=== PATIENT | female | born 2000 | race Hispanic/Latino ===

== ENCOUNTER 2018-01-13 08:49 | Emergency (ER) | payer SELFPAY ==
[~2018-01-13 08:49] MED LIST: DOCU-116 PO; MO8B PO
== END 2018-01-13 09:23 | disposition home or self-care (01) ==
LOC: EDH 08:49
DX: J02.9 Acute pharyngitis, unspecified (principal); Z72.0 Tobacco use

== ENCOUNTER 2018-05-07 08:32 | Emergency (ER) | payer MEDICAID, OTHER ==
[2018-05-07] MEDS ORDERED: ONDANSETRON 4 MG TABLET ONE (08:46)
[2018-05-07] MEDS ORDERED: SODIUM CHLORIDE 0.9% 1000ML 1,000 ML IV ONE (09:03)
[2018-05-07] MEDS ORDERED: ONDANSETRON HCL 4 MG/2 ML VIAL ONE (09:03)
[2018-05-07 09:21] LABS: APPEARANCE,URINE Clear (CLEAR); BILIRUBIN,URINE Negative (NEGATIVE); COLOR,URINE Yellow (YELLOW); GLUCOSE, URINE (UA) Negative (NEGATIVE); KETONES,URINE >=160 mg/dL (NEGATIVE); LEUKOCYTE ESTERASE ,URINE Negative (NEGATIVE); NITRATE,URINE Negative (NEGATIVE); OCCULT BLOOD,URINE Moderate (NEGATIVE); PROTEIN,URINE Trace (NEGATIVE); UROBILINOGEN,URINE 0.2 mg/dL (0.2-1.0)
[2018-05-07 09:22] LABS: HCG,QUAL RESULT NEGATIVE (NEGATIVE)
[2018-05-07 09:27] LABS: AMPHET/METH SCREEN,URINE NEGATIVE (NEGATIVE); BARBITURATE SCREEN, URINE NEGATIVE (NEGATIVE); BENZODIAZEPINES SCREEN,URINE NEGATIVE (NEGATIVE); CANNABINOID SCREEN,URINE POSITIVE (NEGATIVE); COCAINE SCREEN,URINE NEGATIVE (NEGATIVE); OPIATE SCREEN,URINE NEGATIVE (NEGATIVE); PHENCYCLIDINE SCREEN,URINE NEGATIVE (NEGATIVE)
[2018-05-07 09:49] LABS: AMORPHOUS SEDIMENT,UR Few /LPF (None Seen); BACTERIA,URINE Rare /HPF (None Seen); MUCUS,URINE Moderate LPF (None Seen); WBC,URINE None Seen /HPF (0-1)
== END 2018-05-07 11:12 | disposition home or self-care (01) ==
LOC: EDH 08:32
DX: F10.10 Alcohol abuse, uncomplicated (principal); R11.2 Nausea with vomiting, unspecified; F12.10 Cannabis abuse, uncomplicated; Z72.0 Tobacco use; Y90.9 Presence of alcohol in blood, level not specified
CPT/HCPCS: 80305; 81001; 81025; 96361; 96374; 99285; J2405; J7030; Q0162

== ENCOUNTER 2020-12-25 10:19 | Emergency (ER) | payer MEDICAID, OTHER ==
[~2020-12-25] VITALS: Ht 162.6 cm; Wt 47.6 kg
[~2020-12-25 10:19] MED LIST changes: +IBUP-1493 PO; -MO8B PO
[2020-12-25 10:51] LABS: APPEARANCE,URINE Cloudy (CLEAR); BILIRUBIN,URINE Negative (NEGATIVE); COLOR,URINE Dark Yellow (YELLOW); GLUCOSE, URINE (UA) Negative (NEGATIVE); HCG,QUAL RESULT POSITIVE (NEGATIVE); KETONES,URINE Trace mg/dL (NEGATIVE); LEUKOCYTE ESTERASE ,URINE Moderate (NEGATIVE); NITRATE,URINE Negative (NEGATIVE); OCCULT BLOOD,URINE Negative (NEGATIVE); PROTEIN,URINE Trace mg/dL (NEGATIVE)
[2020-12-25 11:00] VITALS: BP 110/71
[2020-12-25 11:03] LABS: BASOPHILS % (AUTO) 0.5 % (0.0-5.0); EOSINOPHILS % (AUTO) 2.6 % (0.0-8.0); HEMATOCRIT 38.4 % (36-48); LYMPHOCYTES % (AUTO) 18.3 % (21.0-51.0); MEAN CORPUSCULAR HEMOGLOBIN 29.5 pg (27.0-33.0); MEAN CORPUSCULAR HGB CONC 33.1 g/dL (32.0-36.0); MEAN CORPUSCULAR VOLUME 89.1 fL (79-99); MONOCYTES % (AUTO) 8.4 % (3.0-13.0); NEUTROPHILS % (AUTO) 69.8 % (40.0-77.0); PLATELET COUNT (AUTO) 182 K/uL (130-400); RED BLOOD CELL COUNT(AUTO) 4.31 MIL/uL (4.00-5.50); RED CELL DISTRIBUTION WIDTH 12.7 % (11.0-15.5); WHITE BLOOD COUNT (AUTO) 7.7 K/uL (4.8-10.8)
[2020-12-25 11:09] LABS: CREATININE 0.7 mg/dL (0.5-1.5); POTASSIUM 3.7 mmol/L (3.5-5.1)
[2020-12-25 11:15] LABS: ALBUMIN 4.2 g/dL (3.5-5.0); TOTAL PROTEIN, SERUM 7.6 g/dL (6.0-8.3)
[2020-12-25 11:31] LABS: BACTERIA,URINE Few /HPF (None Seen); MUCUS,URINE Many LPF (None Seen); RBC,URINE None Seen /HPF (0-1); TRICHOMONAS,URINE Few /LPF (None Seen); WBC,URINE 26-50 /HPF (0-1)
[2020-12-25] MEDS ORDERED: NACL 0.9% IV ONE (12:30)
[2020-12-25] MEDS ORDERED: ACETAMINOPHEN 500 MG TABLET PO ONE (12:30)
[2020-12-25] MEDS ORDERED: NACL 0.9% 1000ML 1,000 ML IV ONE (12:30)
[2020-12-25] MEDS ORDERED: METOCLOPRAMIDE 10 MG/2 ML VIAL IVP ONE (12:30)
[2020-12-25] MEDS ORDERED: CEFTRIAXONE IV ONE (12:30)
[2020-12-25] MEDS ORDERED: CEFTRIAXONE 1G VIAL IVP SCH (12:45)
[2020-12-25] MEDS ORDERED: 0.9%NACL 100ML 100 ML ONE (12:48)
[2020-12-25 13:06] VITALS: BP 112/72
[2020-12-25] MEDS ORDERED: METO10TA41 PO (13:21)
[2020-12-25] MEDS ORDERED: PREN-64 PO (13:21)
[2020-12-25] MEDS ORDERED: CEPH500B PO (13:21)
[2020-12-25 14:19] VITALS: BP 110/68
== END 2020-12-25 14:20 | disposition home or self-care (01) ==
LOC: EDH 10:19
DX: O20.0 Threatened abortion (principal); O23.41 Unspecified infection of urinary tract in pregnancy, first trimester; Z3A.01 Less than 8 weeks gestation of pregnancy
CPT/HCPCS: 36415; 76817; 80053; 81001; 81025; 82150; 83690; 84702; 85025; 87088; 96361; 96374; 96375; 99284; J0696; J2765; J7030

== ENCOUNTER 2021-06-29 18:05 | Inpatient (IN) | payer MEDICAID ==
[~2021-06-29] VITALS: Ht 162.6 cm; Wt 66.2 kg
[~2021-06-29 18:05] MED LIST changes: +CEPH500B PO; +METO10TA41 PO; +PREN-64 PO
[2021-06-29 18:47] LABS: APPEARANCE,URINE Cloudy (CLEAR); BILIRUBIN,URINE Negative (NEGATIVE); COLOR,URINE Dark Yellow (YELLOW); GLUCOSE, URINE (UA) 250 mg/dL (NEGATIVE); KETONES,URINE Trace mg/dL (NEGATIVE); LEUKOCYTE ESTERASE ,URINE Moderate (NEGATIVE); NITRATE,URINE Negative (NEGATIVE); OCCULT BLOOD,URINE Negative (NEGATIVE); PH,URINE 6.5 (5.0-8.0); PROTEIN,URINE Trace mg/dL (NEGATIVE)
[2021-06-29] MEDS: LACTATED RINGERS 1000ML 1,000 ML IV PRN (18:59)
[2021-06-29 19:13] LABS: HEMATOCRIT 35.9 % (36-48); MEAN CORPUSCULAR HEMOGLOBIN 28.7 pg (27.0-33.0); MEAN CORPUSCULAR VOLUME 89.5 fL (79-99); RED BLOOD CELL COUNT(AUTO) 4.01 MIL/uL (4.00-5.50); RED CELL DISTRIBUTION WIDTH 12.4 % (11.0-15.5); WHITE BLOOD COUNT (AUTO) 8.4 K/uL (4.8-10.8)
[2021-06-29 19:26] LABS: RBC,URINE 0-1 /HPF (0-1)
[2021-06-29 19:27] LABS: BACTERIA,URINE Few /HPF (None Seen); MUCUS,URINE Few LPF (None Seen); SQUAMOUS EPITHELIAL CELL,UR Moderate /HPF (0-2)
[2021-06-29 19:28] LABS: YEAST,URINE BUDDING Rare /HPF (None Seen)
[2021-06-29 19:34] LABS: AMPHET/METH SCREEN,URINE NEGATIVE (NEGATIVE); BARBITURATE SCREEN, URINE NEGATIVE (NEGATIVE); BENZODIAZEPINES SCREEN,URINE NEGATIVE (NEGATIVE); CANNABINOID SCREEN,URINE NEGATIVE (NEGATIVE); COCAINE SCREEN,URINE NEGATIVE (NEGATIVE); OPIATE SCREEN,URINE NEGATIVE (NEGATIVE); PHENCYCLIDINE SCREEN,URINE NEGATIVE (NEGATIVE)
[2021-06-29] MEDS: CELESTONE SOLUSPAN 6 MG/ML 5ML VIAL IM SCH (19:58)
[2021-06-29] MEDS ORDERED: AMPICILLIN 2GM VIAL IV SCH (20:00)
[2021-06-29] MEDS ORDERED: AMOXICILLIN 250MG CAP PO SCH (20:00)
[2021-06-29] MEDS ORDERED: PHARMACY COMMUNICATION MISC SCH ×2 (20:00→20:30)
[2021-06-29] MEDS ORDERED: AZITHROMYCIN 250 MG TABLET PO ONE (20:00)
[2021-06-29] MEDS: AMPICILLIN 2GM+NS 100ML 100 ML IV SCH (21:14)
[2021-06-30] MEDS ORDERED: TERBUTALINE SULFATE VIAL 1MG/ML SQ PRN (01:30)
[2021-06-30] MEDS ORDERED: AMPICILLIN 2GM VIAL IV SCH (02:00)
[2021-06-30] MEDS: LACTATED RINGERS 1000ML 1,000 ML IV PRN (02:17)
[2021-06-30] MEDS: AMPICILLIN 2GM+NS 100ML 100 ML IV SCH ×4 (02:29→21:45)
[2021-06-30 06:19] VITALS: BP 106/59
[2021-06-30 10:01] LABS: RAPID PLASMA REAGIN NONREACTIVE (NONREACTIVE)
[2021-06-30] MEDS ORDERED: ACETAMINOPHEN 325 MG TAB PO PRN (15:30)
[2021-06-30] MEDS: CELESTONE SOLUSPAN 6 MG/ML 5ML VIAL IM SCH (19:55)
[2021-06-30 22:10] VITALS: BP 111/65
[2021-06-30] MEDS ORDERED: FLU VACC QS2021-22(6MOS UP)/PF 60 MCG/0.5 ML ML IM ONE (23:30)
[2021-07-01] MEDS: LACTATED RINGERS 1000ML 1,000 ML IV PRN (00:32)
[2021-07-01] MEDS: AMPICILLIN 2GM+NS 100ML 100 ML IV SCH (03:20)
[2021-07-01 03:25] VITALS: BP 121/55
[2021-07-01 14:10] LABS: HEPATITIS Bs ANTIGEN SCREEN P Negative (Negative)
[2021-07-01] MEDS ORDERED: AMOXICILLIN 250MG CAP PO SCH (22:00)
== END 2021-07-01 07:00 | disposition home or self-care (01) | DRG 566 ==
LOC: EDH 18:05 → LDH 18:06 → OBSVTOIN 18:47 → WSH 06-30 22:00
PROVIDERS: ADMIT Obstetrics & Gynecology; ATTEND Obstetrics & Gynecology
DX: O42.913 Preterm premature rupture of membranes, unspecified as to length of time between rupture and onset of labor, third trimester (principal); Z23 Encounter for immunization; Z3A.32 32 weeks gestation of pregnancy
CPT/HCPCS: 36415; 76805; 76815; 80305; 81001; 85027; 86592; 86701; 86850; 86900; 86901; 87088; 87210; 87340; 87390; 96360; 96361; G0378; J0290; J0702; J3105; J7120; Q0114; Q2035

== ENCOUNTER 2021-07-01 21:39 | Observation (INO) | payer MEDICAID ==
[~2021-07-01] VITALS: Ht 162.6 cm; Wt 64.5 kg
[2021-07-01 21:41] VITALS: BP 123/55
[2021-07-01 22:12] LABS: APPEARANCE,URINE Clear (CLEAR); BILIRUBIN,URINE Negative (NEGATIVE); COLOR,URINE Yellow (YELLOW); GLUCOSE, URINE (UA) 500 mg/dL (NEGATIVE); KETONES,URINE Negative (NEGATIVE); LEUKOCYTE ESTERASE ,URINE Moderate (NEGATIVE); NITRATE,URINE Negative (NEGATIVE); OCCULT BLOOD,URINE Negative (NEGATIVE); PROTEIN,URINE Trace mg/dL (NEGATIVE)
[2021-07-01 22:21] LABS: AMPHET/METH SCREEN,URINE NEGATIVE (NEGATIVE); BACTERIA,URINE Few /HPF (None Seen); BARBITURATE SCREEN, URINE NEGATIVE (NEGATIVE); BENZODIAZEPINES SCREEN,URINE NEGATIVE (NEGATIVE); CANNABINOID SCREEN,URINE NEGATIVE (NEGATIVE); COCAINE SCREEN,URINE NEGATIVE (NEGATIVE); OPIATE SCREEN,URINE NEGATIVE (NEGATIVE); PHENCYCLIDINE SCREEN,URINE NEGATIVE (NEGATIVE); SQUAMOUS EPITHELIAL CELL,UR Moderate /HPF (0-2)
[2021-07-01 22:22] LABS: MUCUS,URINE Few LPF (None Seen); YEAST,URINE BUDDING Rare /HPF (None Seen)
[2021-07-02] MEDS ORDERED: LACTATED RINGERS 1000ML 1,000 ML IV SCH
== END 2021-07-02 09:40 | disposition home or self-care (01) ==
LOC: EDH 21:39 → EEVIPCON 21:54 → LDH 21:54
PROVIDERS: ADMIT Obstetrics & Gynecology; ATTEND Obstetrics & Gynecology
DX: O36.8130 Decreased fetal movements, third trimester, not applicable or unspecified (principal); O42.913 Preterm premature rupture of membranes, unspecified as to length of time between rupture and onset of labor, third trimester; Z3A.32 32 weeks gestation of pregnancy
CPT/HCPCS: 76819 ×2; 80305; 81001; 96360; 96361 ×2; G0378 ×9; J7120